=== PATIENT | female | born 1985 | race Caucasian/White ===

== ENCOUNTER 2019-11-09 17:25 | Emergency (ER) | payer BC, OTHER ==
[~2019-11-09] VITALS: Ht 170.2 cm; Wt 97.1 kg
[2019-11-09 17:54] VITALS: BP 139/83
== END 2019-11-09 19:50 | disposition home or self-care (01) ==
LOC: ER 17:25 → EDBD 17:25 → ER 19:50
DX: R05 Cough (principal); Z20.828 Contact with and (suspected) exposure to other viral communicable diseases
CPT/HCPCS: 99283; U0003